=== PATIENT | female | born 1960 | race Caucasian/White ===

== ENCOUNTER 2017-05-01 16:04 | Emergency (ER) | payer BC ==
[~2017-05-01] VITALS: Ht 172.7 cm; Wt 88.9 kg
[2017-05-01 18:09] LABS: MCH 30.1 PG (29.0-34.0); MCHC 32.7 G/DL (30.0-36.0); MCV 92.1 FL (83-99); MEAN PLAT.VOLUME 10.9 uM^3 (9.5-12.4); PLATELET COUNT 223 K/uL (156-360); RBC DIS.WIDTH-CV 12.9 % (11.8-14.6); RBC DIS.WIDTH-SD 43.8 % (39-53); RED BLOOD COUNT 4.45 M/uL (3.80-5.20); WHITE BLOOD COUNT 8.2 K/uL (4.1-10.2)
[2017-05-01 18:19] LABS: CHLORIDE 103 mEq/L (99-109); POTASSIUM 4.1 mEq/L (3.7-5.4); SODIUM 137 mEq/L (136-147)
[2017-05-01 18:20] LABS: GLUCOSE 102 mg/dL (70-99)
[2017-05-01 18:22] LABS: ANION GAP 10 MEQ/L (2-14)
[2017-05-01 18:24] LABS: GFR ESTIMATE (CALCULATED) > 59 mL/min/
[2017-05-01 18:25] LABS: UREA NITROGEN (BUN) 14 mg/dL (9-23)
[2017-05-01 18:34] LABS: TROP-I INTERPRETATION NEGATIVE; TROPONIN-I < 0.01 ng/mL (0.0-0.30)
[2017-05-01 20:32] LABS: TROP-I INTERPRETATION NEGATIVE; TROPONIN-I < 0.01 ng/mL (0.0-0.30)
[2017-05-01 21:52] VITALS: BP 137/58
== END 2017-05-01 21:53 | disposition home or self-care (01) ==
LOC: EME 16:04
PROVIDERS: Physician Assistant Medical
DX: R42 Dizziness and giddiness (principal); E86.0 Dehydration; R51 Headache; R07.9 Chest pain, unspecified
CPT/HCPCS: 71020; 80048; 84484; 85027; 93005; 99281; 99284; J7030